=== PATIENT | female | born 1995 | race Caucasian/White ===

== ENCOUNTER 2023-05-31 17:31 | Emergency (ER) | payer SELFPAY ==
[~2023-05-31] VITALS: Ht 172.7 cm; Wt 66.0 kg
[2023-05-31 17:54] VITALS: TEMP 98.2; O2SAT 100
[2023-05-31] MEDS ORDERED: KETOROLAC 60MG/2ML VIAL IM STA (21:12)
[2023-05-31] MEDS ORDERED: HYDR-4001 MT (21:31)
[2023-05-31] MEDS ORDERED: NAPR-681 MT (21:31)
[2023-05-31 22:01] VITALS: BP 128/76; PULSE 90; RESP 16
== END 2023-05-31 22:05 | disposition home or self-care (01) ==
LOC: ER 17:31
DX: S82.831A Other fracture of upper and lower end of right fibula, initial encounter for closed fracture (principal); W18.39XA Other fall on same level, initial encounter; Y93.89 Activity, other specified; Y92.89 Other specified places as the place of occurrence of the external cause; Y99.8 Other external cause status
CPT/HCPCS: 81025; 73610; 96372; 99283; J1885; Z7610